=== PATIENT | male | born 1990 | race Caucasian/White ===

== ENCOUNTER 2018-12-28 13:02 | Emergency (ER) | payer OTHER ==
[~2018-12-28] VITALS: Ht 177.8 cm; Wt 62.6 kg
[2018-12-28 13:07] VITALS: Ht 177.8 cm; Wt 62.6 kg
[2018-12-28] MEDS ORDERED: ONDANSETRON 4 MG INJ IV STA (13:34)
[2018-12-28] MEDS ORDERED: FAMOTIDINE 20 MG TAB PO STA (13:34)
[2018-12-28] MEDS ORDERED: SOD CHLORIDE 0.9% 1,000 ML IV STA (13:34)
--- NOTE | 2018-12-28 13:43 | ERD ---
ER Documentation Chief Complaint Chief Complaint on and off vomitting/ weak since august 2018 getting worse; weight loss HPI This is a 28-year-old male patient who presents to the emergency by referral of his physician's office Harper Costello NP at [facility]. Patient has had vomiting with eating since last May and has lost 40 pounds since August. Patient was in the [facility] from May to August. Patient states last week he had ultrasound and CT scan that only showed gastritis. Patient has been unable to provide a stool sample for testing as he says he is not producing stool because he is not eating. No fevers, no abdominal pain, no hematemesis no melena. Patient started omeprazole 2 days ago and primary is working on scheduling EGD. Patient awake and alert, decreased en ergy however NAD. ROS All systems reviewed and are negative except as per history of present illness. Medications Home Meds Active Scripts Ondansetron (Ondansetron Odt) 4 Mg Tab.rapdis, 4 MG PO Q6H PRN for NAUSEA AND/OR VOMITING, #10 TAB Prov:TAMIA DOOLEY ALLERGY NURSE 12/28/18 Allergies Allergies: Coded Allergies: No Known Allergy (Unverified , 12/28/18) PMhx/Soc Medical and Surgical Hx: pt denies Medical Hx FmHx Family History: No diabetes, No coronary disease, No other Physical Exam Vitals Vital Signs Date Temp Pulse Resp B/P (MAP) Pulse Ox O2 O2 Flow FiO2 Time Delivery Rate 12/28/18 98.0 80 18 115/76 100 Room Air 15:33 (89) 12/28/18 98.3 116 24 138/65 97 13:07 (89) Physical Exam Const: No acute distress Head: Atraumatic Eyes: Normal Conjunctiva, PERRL, EOMI ENT: Normal External Ears, TM clear BL. Pharynx pink, moist, no lesions no exudate no petechiae Neck: Full range of motion. No meningismus. No lymphadenopathy, no thyromegaly Resp: Clear to auscultation bilaterally Cardio: Regular rate and rhythm, no murmurs Abd: Soft, non tender, non distended. Decreased bowel sounds. No hepato-or splenomegaly. No bruising. No epigastric tenderness. Skin: No petechiae or rashes, and turgor less than 2 seconds, no bruising Back: No midline or flank tenderness, no CVT Ext: No cyanosis, or edema Neur: Awake and alert, CNII-XII intact, clear speech, steady gait Psych: Normal Mood and Affect Result Diagram: 12/28/18 1344 12/28/18 1344 Results 24 hrs Laboratory Tests Test 12/28/18 13:44 12/28/18 14:32 White Blood Count 6.6 10^3/ul Red Blood Count 5.53 10^6/ul Hemoglobin 16.6 g/dl Hematocrit 47.9 % Mean Corpuscular Volume 86.6 fl Mean Corpuscular Hemoglobin 30.0 pg Mean Corpuscular Hemoglobin Concent 34.7 g/dl Red Cell Distribution Width 11.6 % Platelet Count 307 10^3/UL Mean Platelet Volume 8.4 fl Immature Granulocytes % 0.300 % Neutrophils % 83.7 % Lymphocytes % 11.7 % Monocytes % 4.0 % Eosinophils % 0.0 % Basophils % 0.3 % Nucleated Red Blood Cells % 0.0 /100WBC Immature Granulocytes # 0.020 10^3/ul Neutrophils # 5.5 10^3/ul Lymphocytes # 0.8 10^3/ul Monocytes # 0.3 10^3/ul Eosinophils # 0.0 10^3/ul Basophils # 0.0 10^3/ul Nucleated Red Blood Cells # 0.0 10^3/ul Sodium Level 144 mmol/L Potassium Level 4.6 mmol/L Chloride Level 103 mmol/L Carbon Dioxide Level 30 mmol/L Anion Gap 11 Blood Urea Nitrogen 7 mg/dl Creatinine 0.98 mg/dl Est Glomerular Filtrat Rate mL/min > 60 mL/min Glucose Level 106 mg/dl Calcium Level 10.0 mg/dl Total Bilirubin 0.9 mg/dl Direct Bilirubin 0.00 mg/dl Indirect Bilirubin 0.9 mg/dl Aspartate Amino Transf (AST/SGOT) 18 IU/L Alanine Aminotransferase (ALT/SGPT) 15 IU/L Alkaline Phosphatase 49 IU/L Total Protein 8.9 g/dl Albumin 4.9 g/dl Globulin 4.00 g/dl Albumin/Globulin Ratio 1.22 Lipase 137 U/L Urine Color STRAW Urine Clarity CLEAR Urine pH 7.0 Urine Specific [place] 1.003 Urine Ketones NEGATIVE mg/dL Urine Nitrite NEGATIVE mg/dL Urine Bilirubin NEGATIVE mg/dL Urine Urobilinogen NEGATIVE mg/dL Urine Leukocyte Esterase NEGATIVE Desiree/ul Urine Hemoglobin NEGATIVE mg/dL Urine Glucose NEGATIVE mg/dL Urine Total Protein NEGATIVE mg/dl Current Medications Medications Dose Sig/Karin Start Time Status Last (Trade) Ordered Route PRN Stop Time Admin Dose Reason Admin Sodium 1,000 ml @ Q1H STAT 12/28/18 DC 12/28/18 Chloride 1,000 mls/hr IV 13:34 13:47 12/28/18 14:33 Ondansetron 4 mg ONCE STAT 12/28/18 DC 12/28/18 HCl (Zofran IV 13:34 13:47 Inj) 12/28/18 13:37 Famotidine 20 mg ONCE STAT 12/28/18 DC 12/28/18 (Pepcid) PO 13:34 13:47 12/28/18 13:37 Procedures/MDM PROCEDURES/MDM DIAGNOSTIC IMAGING: Not indicated at this time PROCEDURES: none LAB INTERPRETATION: No leukocytosis cysts, no anemia, no electrolyte disturbance, no nephropathy, no transaminitis, no pancreatitis no UTI or signs of dehydration. -Medications: Saline, Pepcid, Zofran Patient tolerated medication well with no adverse reactions. Patient reported improvement in nausea. MDM: 28-year-old male patient presents emergency room with referral from primary care provider with concern for dehydration. Patient has had vomiting with eating sin ce last May. He has lost 40 pounds since August. Patient's primary care doctor has performed ultrasound and CT scan with only result of gastritis. Patient states that his primary care doctor is working on referral for EGD. Patient's work-up today not concerning for acute infection, dehydration, hepatitis, pancreatitis, anemia, cystitis, pancreatitis, other life-threatening intra-abdominal etiology. Upon reevaluation patient states he feels improved after IV hydration and Zofran. P.o. challenge successful. Patient instructed to increase his omeprazole to twice daily and use Zofran as needed for nausea. Red flag signs and symptoms discussed with patient with implicit return instructions. DISPOSITION and PLAN: RX: Zofran The patient has been discharge home to follow-up with community physician. Departure Diagnosis: Primary Impression: Vomiting Vomiting type: unspecified Vomiting Intractability: non-intractable Nausea presence: without nausea Qualified Codes: R11.11 - Vomiting without nausea Condition: Stable TAMIA DOOLEY NP Dec 28, 2018 13:43
[2018-12-28 15:33] VITALS: BP 115/76; PULSE 80; RESP 18
[2018-12-28] MEDS ORDERED: ONDA4TAB14 PO (15:41)
== END 2018-12-28 15:54 | disposition home or self-care (01) ==
LOC: FTE 13:02
DX: R11.11 Vomiting without nausea (principal)
CPT/HCPCS: 36415; 80053; 81003; 83690; 85025; 96361; 96374; 99284; J2405; J7030